=== PATIENT | female | born 1970 | race African-American/Black ===

== ENCOUNTER 2016-10-08 13:33 | Emergency (ER) | payer SELFPAY ==
[~2016-10-08] VITALS: Ht 167.6 cm; Wt 103.9 kg
[2016-10-08 13:58] VITALS: BP 143/94
== END 2016-10-08 14:47 | disposition home or self-care (01) ==
LOC: ER 13:45
DX: L03.111 Cellulitis of right axilla (principal); L03.112 Cellulitis of left axilla; I10 Essential (primary) hypertension; L40.9 Psoriasis, unspecified; Z90.710 Acquired absence of both cervix and uterus